=== PATIENT | male | born 1945 | race African-American/Black ===

== ENCOUNTER 2018-08-22 17:44 | Emergency (ER) | payer MEDICARE, MEDICAID ==
[~2018-08-22] VITALS: Ht 190.5 cm; Wt 83.9 kg
[2018-08-22 17:53] VITALS: BP 159/98
[2018-08-22] MEDS ORDERED: Bacitracin Oint UD TOPIC ONE (18:30)
[2018-08-22] MEDS ORDERED: Cephalexin 500mg cap ORAL ONE (18:30)
[2018-08-22] MEDS ORDERED: Tetanus/Diptheria/Pertussis Vaccine 0.5ml Syr IM ONE (18:45)
--- NOTE | 2018-08-22 18:45 | Emergency Room Report ---
History of Present Illness General Chief Complaint: Skin Rash/Abscess Source: Patient Present Illness HPI 72-year-old male presents to the emergency department complaining of c/o Itching, swelling, and erythema of lateral left ankle. Reports 8 out of 10 in severity pain. Patient is unsure when his last tetanus vaccination was. Patient reports that his has similar symptoms as well. Pt. denies fevers, chills or swollen tender lymph nodes. Denies lesions/rashes elsewhere on the body. Denies new medications or body washes or creams. Denies swelling of the lips, tongue , throat or airway. Denies wheezing, or shortness of breath. Denies recent travel. Denies blisters, oral lesions, or sloughing of the skin Allergies: Coded Allergies: ASPIRIN (Verified Allergy, Unknown, 08/22/18) Patient History Past Medical History: see triage record Past Surgical History: none Pertinent Family History: none Reviewed Nursing Documentation: PMH: Agreed; PSxH: Agreed Nursing Documentation-PMH Past Medical History: No History, Except For Hx Hypertension: Yes Review of Systems All Other Systems: negative except mentioned in HPI Physical Exam Vital Signs Date Time Temp Pulse Resp B/P (MAP) Pulse Ox O2 Delivery O2 Flow Rate FiO2 08/22/18 17:53 98.4 93 20 159/98 95 Room Air Sp02 EP Interpretation: reviewed, normal General Appearance: no apparent distress, alert, GCS 15, non-toxic Head: normocephalic, atraumatic Eyes: bilateral eye normal inspection, bilateral eye PERRL ENT: hearing grossly normal, no angioedema, normal voice Neck: full range of motion Respiratory: chest non-tender, lungs clear, normal breath sounds, no wheezing, speaking full sentences Cardiovascular #1: regular rate, rhythm, no edema Musculoskeletal: back normal, gait/station normal, normal range of motion, non- tender Neurologic: alert, oriented x3, responsive, motor strength/tone normal, sensory intact, normal gait, speech normal, grossly normal Psychiatric: judgement/insight normal Skin: normal color, warm/dry, well hydrated, rash - multiple insect bites to the left ankle, excoriations, erythema and warmth, no blisters or vesicles. , other - hairless shiny appearance to skin of bilateral LE's, hyperpigmentation also noted. Medical Decision Making PA Attestation Dr. Ochoa is my supervising Physician whom patient management has been discussed with. Diagnostic Impression: Primary Impression: Insect bite Qualified Codes: W57.XXXA - Bitten or stung by nonvenomous insect and other nonvenomous arthropods, initial encounter ER Course 72-year-old male presents to the emergency department complaining of c/o Itching, swelling, and erythema of lateral left ankle. Reports 8 out of 10 in severity pain. Patient is unsure when his last tetanus vaccination was. Patient reports that his has similar symptoms as well. Pt. denies fevers, chills or swollen tender lymph nodes. Denies lesions/rashes elsewhere on the body. Denies new medications or body washes or creams. Denies swelling of the lips, tongue , throat or airway. Denies wheezing, or shortness of breath. Denies recent travel. Denies blisters, oral lesions, or sloughing of the skin skin signs that are evident of PVD. Ddx considered but are not limited to cellulitis, scabies, insect bites, tic bites, spider bites, contact dermatitis, Drug reaction, allergic reaction, fungal infection, lice. Vital signs: are WNL, pt. is afebrile H&PE are most consistent with multiple insect bites to the left ankle, excoriations, and suspected secondary cellulitic infection. ORDERS: none required at this time, the diagnosis is clinical ED INTERVENTIONS: -Tdap IM -Wound Care- cleaning and bacitracin application by RN. -Keflex PO DISCHARGE: At this time pt. is stable for d/c to home. Will provide printed patient care instructions, and any necessary prescriptions. Care plan and follow up instructions have been discussed with the patient prior to discharge. Last Vital Signs Date Time Temp Pulse Resp B/P (MAP) Pulse Ox O2 Delivery O2 Flow Rate FiO2 08/22/18 17:53 98.4 93 20 159/98 95 Room Air Disposition: HOME, SELF-CARE Condition: Stable Scripts Hydrocortisone 2% Cream (ANTI-ITCH 2% CREAM) Y Cr 1 APPLIC TP TID, #28.3 GM Prov: Madeline Mcclelland 08/22/18 Mupirocin* (MUPIROCIN*) 22 Gm Oint...g. 1 APPLIC TOPIC THREE TIMES A DAY, #22 GM Prov: Madeline Mcclelland 08/22/18 Cephalexin* (KEFLEX*) 500 Mg Capsule 500 MG ORAL EVERY 12 HOURS for 7 Days, #14 CAP 0 Refills Prov: Madeline Mcclelland 08/22/18 Patient Instructions: Insect Bite, Bryg-ey-Izbl Additional Instructions: Take medications as directed. Follow up with a Primary Care Provider in 3-5 days, even if your symptoms have resolved. --Please review list of primary care clinics, if you do not already have a primary care provider Return sooner to ED if new symptoms occur, or current symptoms become worse. - Please note that this Emergency Department Report was dictated using [employer] technologist technology software, occasionally this can lead to erroneous entry secondary to interpretation by the dictation equipment. Madeline Mcclelland Aug 22, 2018 18:45
[2018-08-22] MEDS ORDERED: ANTI-ITCH28 G1 TP (18:53)
[2018-08-22] MEDS ORDERED: CEPHALEXIN500 MG ORAL (18:53)
[2018-08-22] MEDS ORDERED: MUPIROCIN22 GM TOPIC (18:53)
[2018-08-22 18:58] VITALS: BP 148/76
== END 2018-08-22 18:58 | disposition home or self-care (01) ==
LOC: EMR 18:00
DX: S90.562A Insect bite (nonvenomous), left ankle, initial encounter (principal); W57.XXXA Bitten or stung by nonvenomous insect and other nonvenomous arthropods, initial encounter; Y92.9 Unspecified place or not applicable; R21 Rash and other nonspecific skin eruption; L81.9 Disorder of pigmentation, unspecified; Z23 Encounter for immunization; I10 Essential (primary) hypertension
CPT/HCPCS: 90471; 90715; 99283

== ENCOUNTER 2019-02-08 05:29 | Inpatient (IN) | payer MEDICARE, MEDICAID ==
[~2019-02-08] VITALS: Ht 190.5 cm; Wt 81.2 kg
[2019-02-08] VITALS (7 sets, daily range): BP systolic 90–168; BP diastolic 44–89
[~2019-02-08 05:29] MED LIST: ANTI-ITCH28 G1 TP; CEPHALEXIN500 MG ORAL; MUPIROCIN22 GM TOPIC
--- NOTE | 2019-02-08 05:40 | NUR ---
ED Nurse Note: Pt arrived ambulatory, A/Ox4 for facial swelling that began at approximately 6pm last night. Pt verbalized taking lisinopril. Swelling noted around cheeks and lips, minimal swelling of tongue. Pt denies SOB or difficulty breathing.
[2019-02-08] MEDS ORDERED: Solu-MEDROL 125mg Inj IVP ONE (06:00)
[2019-02-08] MEDS ORDERED: DiphenhydrAMINE 50mg/ml Inj IVP ONE (06:00)
[2019-02-08 06:03] LABS: EOSINOPHILS % (AUTO) 4.7 % (0.0-3.0); HEMATOCRIT 37.6 % (42.0-52.0); HEMOGLOBIN 12.6 G/DL (14.2-18.0); LYMPHOCYTES % (AUTO) 15.7 % (20.0-45.0); MEAN CORPUSCULAR VOLUME 84 FL (80-99); MONOCYTES % (AUTO) 6.5 % (1.0-10.0); NEUTROPHILS % (AUTO) 72.1 % (45.0-75.0); PLATELET COUNT 192 K/UL (150-450); RED BLOOD COUNT 4.49 M/UL (4.70-6.10); RED CELL DISTRIBUTION WIDTH 11.4 % (11.6-14.8); WHITE BLOOD COUNT 5.6 K/UL (4.8-10.8)
[2019-02-08 06:24] LABS: ANION GAP 7 mmol/L (5-15); BLOOD UREA NITROGEN 27 mg/dL (7-18); CALCIUM 10.2 MG/DL (8.5-10.1); CARBON DIOXIDE 27 MMOL/L (21-32); CHLORIDE 100 MMOL/L (98-107); CREATININE 2.2 MG/DL (0.55-1.30); SODIUM 134 MMOL/L (136-145)
--- NOTE | 2019-02-08 06:27 | Emergency Room Report ---
History of Present Illness General Chief Complaint: Allergic Reaction Source: Patient Present Illness HPI Is a 73-year-old male with a history of high blood pressure. He presents with chief complaint of allergic reaction. He takes an GREG inhibitor and Norvasc for his high blood pressure. About 12 hours ago, he noticed swelling to his lip after dinner. It progressively getting worse. Started on the left side and now spreading to the right side. Also with some swelling to the left cheek. No tongue swelling. No patellar distress. No neck tightness. No other new medication. No other complaint. Allergies: Coded Allergies: ASPIRIN (Verified Allergy, Unknown, 08/22/18) Patient History Past Medical History: see triage record, old chart reviewed, HTN Past Surgical History: none Pertinent Family History: none Social History: Denies: smoking Immunizations: other Reviewed Nursing Documentation: PMH: Agreed; PSxH: Agreed Nursing Documentation-PMH Hx Hypertension: Yes Hx Gastrointestinal Problems: No - prostate biopsy Review of Systems Eye: Denies: eye pain, blurred vision ENT: Denies: ear pain, nose congestion, throat swelling Respiratory: Denies: cough, shortness of breath Cardiovascular: Denies: chest pain, palpitations Gastrointestinal: Denies: abdominal pain, diarrhea, nausea, vomiting Musculoskeletal: Denies: back pain, joint pain Skin: Denies: rash Neurological: Denies: headache, numbness Endocrine: Denies: increased thirst, increased urine Hematologic/Lymphatic: Denies: easy bruising All Other Systems: negative except mentioned in HPI Physical Exam Vital Signs Date Time Temp Pulse Resp B/P (MAP) Pulse Ox O2 Delivery O2 Flow Rate FiO2 02/08/19 05:30 85 18 Room Air 99 02/08/19 05:30 98.1 161/89 99 vitals with high blood pressure Sp02 EP Interpretation: reviewed, normal General Appearance: well appearing, no apparent distress, alert Head: normocephalic, atraumatic Eyes: bilateral eye PERRL, bilateral eye EOMI ENT: hearing grossly normal, normal pharynx, other - He has edema to his lips and left cheek area. No trismus. No tongue edema. No swelling to the submental area. 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 Fortunately only involving his lips area no respiratory issue. Will admit for monitoring. At this point in time, he is protecting his airway. No evidence of anaphylaxis. I discussed the case with Dr. Hernandes for admission. EKG Diagnostic Results Rate: normal Rhythm: NSR ST Segments: no acute changes Rhythm Strip Diag. Results EP Interpretation: yes Rate: 94 Rhythm: NSR, no PVC's, no ectopy Last Vital Signs Date Time Temp Pulse Resp B/P (MAP) Pulse Ox O2 Delivery O2 Flow Rate FiO2 02/08/19 05:39 97.0 84 15 161/89 100 Room Air 02/08/19 05:30 99 Status: improved Disposition: ADMITTED INPATIENT Condition: Serious Referrals: NOT CHOSEN IPA/,REFERRING (PCP) Alfredo Boggs MD Feb 08, 2019 06:27
[2019-02-08] MEDS ORDERED: LISINOPRIL20 MG ORAL (06:44)
[2019-02-08] MEDS ORDERED: NORVASC10 MG ORAL (06:44)
[2019-02-08] MEDS ORDERED: NORCO 10-325 T1 EACH ORAL (06:44)
--- NOTE | 2019-02-08 06:44 | NUR ---
ED Nurse Note: and pt attempted to provide verbal list of medications being taken. Pt states he is also taking other medications but unaware of the names.
[2019-02-08] MEDS ORDERED: HYDROcodone/Acetamin 5/325 tab ORAL ONE (06:45)
--- NOTE | 2019-02-08 06:58 | NUR ---
ED Nurse Note: Pt continues to thrash and moan in pain. Pt states pain is located on left side of prostate 10/10, sharp. Comfort measures provided. Will continue to monitor.
--- NOTE | 2019-02-08 07:06 | NUR ---
ED Nurse Note: BP decreased, per MD 500 ml bolus to be given.
--- NOTE | 2019-02-08 08:00 | NUR ---
ED Nurse Note:pt.'s BP went to 126/66 he still c/o prostate pain, ER MD authorized to transfer Pt. to tele at this time without additional dose of pain meds.
--- NOTE | 2019-02-08 08:10 | NUR ---
ED Nurse Note:called report to tele -given to RN Min, pt. was taken up stairs
--- NOTE | 2019-02-08 08:10 | NUR ---
NURSE NOTES: Received report from Ladi RN form ED. Pt transferred from ED via [facility] with nuclear medicine technician and RN. AO X4 and able to verbalize. Pt ambulates steady and uses urinal. All adm order verified with Dr. Hernandes. IV LAC 20G SL intact and patent. Skin intact and dry. Noted swelling to lip and face but pt no c/o sore throat and no difficulty in breathe. Will SCD for DVT ppx when it's available.
[2019-02-08] MEDS ORDERED: Zolpidem 5mg tab ORAL PRN (09:00)
[2019-02-08] MEDS ORDERED: Mylanta II UD 30ml ORAL PRN (09:00)
[2019-02-08] MEDS ORDERED: Morphine Sulfate 2mg/ml Inj(IV/IM USE ONLY) IVP PRN ×2 (09:00→16:30)
[2019-02-08] MEDS ORDERED: LORazepam Inj 2mg/ml 1ml IV PRN (09:00)
[2019-02-08] MEDS ORDERED: Miralax 17gm pkt ORAL PRN (09:00)
--- NOTE | 2019-02-08 10:21 | Consultation ---
History of Present Illness General Date patient seen: Feb 08, 2019 Chief Complaint: Allergic Reaction Present Illness HPI 73-year-old male with a history of high blood pressure presented to ER with chief complaint of allergic reaction about 12 hours ago, he noticed swelling to his lip after dinner. It progressively getting worse. Also with some swelling to the left cheek. No tongue swelling. No patellar distress. No neck tightness. No other new medication. This started after taking MARA inhibitors. Pt is admitted to telemetry for further management. Allergies: Coded Allergies: ASPIRIN (Verified Allergy, Unknown, 08/22/18) Medication History Scheduled Amlodipine Besylate (Norvasc), 10 MG ORAL DAILY, (Reported) Cephalexin* (Keflex*), 500 MG ORAL EVERY 12 HOURS Hydrocortisone 2% Cream (Anti-Itch 2% Cream), 1 APPLIC TP TID Lisinopril (Lisinopril*), 20 MG ORAL DAILY, (Reported) Mupirocin* (Mupirocin*), 1 APPLIC TOPIC THREE TIMES A DAY Scheduled PRN Hydrocodone Bit/Acetaminophen 10-325* ([place] 10-325*), 1 TAB ORAL Q4H PRN for For Pain, (Reported) Patient History Healthcare decision maker Resuscitation status Advanced Directive on File Past Medical/Surgical History Past Medical/Surgical History: (1) Hypertension Review of Systems All Other Systems: negative except mentioned in HPI Physical Exam General Appearance: WD/WN Lines, tubes and drains: peripheral HEENT: normocephalic, atraumatic Neck: non-tender, normal alignment Respiratory/Chest: chest wall non-tender, lungs clear, normal breath sounds Breasts: no masses Cardiovascular/Chest: normal peripheral pulses Abdomen: normal bowel sounds Genitourinary/Rectal: normal genital exam Extremities: normal range of motion Skin Exam: normal pigmentation Last 24 Hour Vital Signs Date Time Temp Pulse Resp B/P (MAP) Pulse Ox O2 Delivery O2 Flow Rate FiO2 02/08/19 08:01 98.4 85 18 126/66 100 Room Air 99 02/08/19 07:55 98.4 85 18 126/66 100 Room Air 99 02/08/19 07:00 98.4 75 24 90/44 100 Room Air 99 02/08/19 06:59 98.1 02/08/19 06:26 161/89 02/08/19 06:26 93 161/89 02/08/19 05:39 97.0 84 15 100 Room Air 02/08/19 05:30 98.1 81 22 99 Room Air 02/08/19 05:30 85 18 Room Air 99 Laboratory Tests Test 02/08/19 05:51 White Blood Count 5.6 K/UL (4.8-10.8) Red Blood Count 4.49 M/UL (4.70-6.10) L Hemoglobin 12.6 G/DL (14.2-18.0) L Hematocrit 37.6 % (42.0-52.0) L Mean Corpuscular Volume 84 FL (80-99) Mean Corpuscular Hemoglobin 28.0 PG (27.0-31.0) Mean Corpuscular Hemoglobin Concent 33.5 G/DL (32.0-36.0) Red Cell Distribution Width 11.4 % (11.6-14.8) L Platelet Count 192 K/UL (150-450) Mean Platelet Volume 7.3 FL (6.5-10.1) Neutrophils (%) (Auto) 72.1 % (45.0-75.0) Lymphocytes (%) (Auto) 15.7 % (20.0-45.0) L Monocytes (%) (Auto) 6.5 % (1.0-10.0) Eosinophils (%) (Auto) 4.7 % (0.0-3.0) H Basophils (%) (Auto) 1.0 % (0.0-2.0) Sodium Level 134 MMOL/L (136-145) L Potassium Level 5.0 MMOL/L (3.5-5.1) Chloride Level 100 MMOL/L (98-107) Carbon Dioxide Level 27 MMOL/L (21-32) Anion Gap 7 mmol/L (5-15) Blood Urea Nitrogen 27 mg/dL (7-18) H Creatinine 2.2 MG/DL (0.55-1.30) H Estimat Glomerular Filtration Rate mL/min (>60) Glucose Level 110 MG/DL (74-106) H Calcium Level 10.2 MG/DL (8.5-10.1) H Height (Feet): 6 Height (Inches): 3.00 Weight (Pounds): 180 Medications Current Medications Medications (Trade) Dose Ordered Sig/Winnie Route PRN Reason Start Time Stop Time Status Last Admin Dose Admin Acetaminophen (Tylenol) 650 mg Q4H PRN ORAL fever 02/08/19 09:00 03/10/19 08:59 Al Hydroxide/Mg Hydroxide (Mylanta II) 30 ml Q6H PRN ORAL dyspepsia 02/08/19 09:00 03/10/19 08:59 Dextrose (Dextrose 50%) STAT PRN IV Hypoglycemia 02/08/19 09:00 03/10/19 08:59 Lorazepam (Ativan 2mg/ml 1ml) 0.5 mg Q4H PRN IV For Anxiety 02/08/19 09:00 02/15/19 08:59 Morphine Sulfate (Morphine Sulfate) 1 mg EVERY 4 HOURS PRN IVP For Pain 02/08/19 09:00 02/15/19 08:59 02/08/19 09:57 Ondansetron HCl (Zofran) 4 mg Q6H PRN IVP Nausea & Vomiting 02/08/19 09:00 03/10/19 08:59 Polyethylene Glycol (Miralax) 17 gm HSPRN PRN ORAL Constipation 02/08/19 09:00 03/10/19 08:59 Zolpidem Tartrate (Ambien) 5 mg HSPRN PRN ORAL Insomnia 02/08/19 09:00 02/15/19 08:59 Assessment/Plan Problem List: (1) Hypertension ICD Codes: I10 - Essential (primary) hypertension SNOMED: 45728831 Qualifiers: Qualified Codes: I10 - Essential (primary) hypertension (2) Angioedema due to angiotensin converting enzyme inhibitor(MARA-I) ICD Codes: T78.3XXA - Angioneurotic edema, initial encounter; T46.4X5A - Adverse effect of antizlwyxjo-rdwjqubduv-nyoclg inhibitors, initial encounter SNOMED: 362806548 Diagnosis [place] I: symptomatic treatment check bp avoid MARA inhibitors Paula Cho MD Feb 08, 2019 10:21
--- NOTE | 2019-02-08 14:32 | NUR ---
CASE MANAGEMENT: REVIEW 73Y/M PRESENTED TO ED FROM HOME CC: ALLERGIC REACTION FROM AMRA INHIBITOR . NECK TIGHTNESS SI: ANGIOEDEMA T 97.0 HR 84 RR 15 BP 161/89 SAT 99% ROOM AIR H/H 12.6/37.6 NA 134 BUN 27 CR 2.2 IS: SOLU MEDROL IV X1 BENADRYL IV X1 HYDRALAZINE IV X1 NORVASC PO X1 NORCO 5/325 PO X1 PATIENT ADMITTED TO TELEMETRY UNIT 02/08/2019 DCP: PATENT IS FROM HOME
--- NOTE | 2019-02-08 15:05 | Consultation ---
Consult Note Consult Note asked to eval for renal failure Is a 73-year-old male with a history of high blood pressure. He presents with chief complaint of allergic reaction. He takes an GREG inhibitor and Norvasc for his high blood pressure. About 12 hours ago, he noticed swelling to his lip after dinner. It progressively getting worse. Started on the left side and now spreading to the right side. Also with some swelling to the left cheek. No tongue swelling. No patellar distress. No neck tightness. No other new medication. No other complaint. Allergies: ASPIRIN (Verified Allergy, Unknown, 08/22/18) Hx Hypertension: Yes Hx Gastrointestinal Problems: No - prostate biopsy interviewed examined data reviewed has swollen lips no breathing difficulty . Assessment/Plan Acute on Chronic renal failure- Hypertensive kidney disease Acute allergic reaction to Greg Inhibitors H2 Blockers H1 Mehdi Hydrate BP meds monitor renal parameters CXR Kidney GREYSON urine studies Per orders Philip James MD Feb 08, 2019 15:05
[2019-02-08] MEDS ORDERED: Solu-MEDROL 125mg Inj IVP SCH (15:15)
[2019-02-08] MEDS ORDERED: Dextrose 50% 25ml Syringe IV PRN (15:15)
[2019-02-08] MEDS: D5 1/2NS 1,000 ML IV SCH (15:38)
[2019-02-08] MEDS: HYDROcodone/Acetamin 10/325 tab ORAL PRN (16:52)
--- NOTE | 2019-02-08 17:53 | NUR ---
NURSE NOTES: RN was called from Radiology dept for US kidney. Per associate technician, there tech's gone for the day and test will be available tomorrow AM. Dr. James who ordered for US kidney notified about it. And order for US kidney rescheduled to tomorrow(Sunday) AM.
[2019-02-08 17:58] LABS: APPEARANCE,URINE CLEAR; BILIRUBIN, URINE NEGATIVE (NEGATIVE); COLOR,URINE PALE YELLOW; GLUCOSE, URINE (UA) NEGATIVE (NEGATIVE); KETONES,URINE NEGATIVE (NEGATIVE); LEUKOCYTE ESTERASE ,URINE NEGATIVE (NEGATIVE); NITRITE,URINE NEGATIVE (NEGATIVE); PH,URINE 6 (4.5-8.0); PROTEIN,URINE 1+ (NEGATIVE); UROBILINOGEN,URINE NORMAL MG/DL (0.0-1.0)
--- NOTE | 2019-02-08 19:39 | NUR ---
HAND-OFF: Report given to Anthony SHEA. Pt remains stable.
--- NOTE | 2019-02-08 19:40 | NUR ---
NURSE NOTES: Got report from Min RN. Pt in stable condition. Continue to monitor.
--- NOTE | 2019-02-08 21:00 | History and Physical Report ---
DATE OF ADMISSION: 02/08/2019 TIME: At 9 am. ATTENDING PHYSICIAN: Tang Hernandes D.O. CONSULTANTS: 1. Puala Cho M.D. 2. Philip James M.D. CHIEF COMPLAINT: Angioedema and allergic reaction. BRIEF HISTORY: The patient is a 73-year-old male who lives at home with history of hypertension, recently his doctor changed Norvasc to MARA inhibitor. The patient developed swelling in the lips and came to [place], diagnosed with the above, admitted to the telemetry for further care. Currently, calm, in bed. No complaint. REVIEW OF SYSTEMS: No chest pain. No shortness of breath. No nausea, vomiting, or diarrhea. No respiratory problem. PAST MEDICAL HISTORY: Hypertension. PAST SURGICAL HISTORY: Abdominal surgery. ALLERGIES: Aspirin and now MARA inhibitor. MEDICATIONS: Include Tylenol, morphine, Zofran, zolpidem, lorazepam. SOCIAL HISTORY: No smoking. No alcohol. No intravenous drug abuse. FAMILY HISTORY: Noncontributory. PHYSICAL EXAMINATION: GENERAL: Calm in bed, oriented x3, in no acute distress. VITAL SIGNS: Temperature is 98 degrees, pulse 85, respirations 18, and blood pressure 126/66. CARDIOVASCULAR: No murmur. LUNGS: Distant and clear. ABDOMEN: Bowel sound positive. Nontender. Nondistended. EXTREMITIES: Showed no cyanosis or edema. NEUROLOGIC: The patient moves all extremities, slightly weak. Noted upper and lower lip swelling and no airway compromise. LABORATORY DATA: Labs at this time show hemoglobin and hematocrit 12.6/37, otherwise CBC is normal. BMP shows sodium of 134, BUN and creatinine 27 and 2.2, glucose 110. ASSESSMENT: 1. Angioedema. 2. Hypertension. 3. Anemia. 4. Renal insufficiency. PLAN: 1. Observe anti-allergy med p.r.n. 2. NPO. 3. IV fluids. 4. We will monitor. 5. We will continue to follow the patient. 6. CBC and BMP in the morning. Tang Hernandes D.O. DR: GABRIELLA JOB#: [id number] CC:
[2019-02-08] MEDS: Tamsulosin 0.4mg cap ORAL SCH (21:17)
[2019-02-09 00:50] VITALS: BP 107/51
[2019-02-09 04:09] VITALS: BP 150/90
[2019-02-09] MEDS: D5 1/2NS 1,000 ML IV SCH (04:24)
[2019-02-09 07:13] LABS: BASOPHILS % (AUTO) 0.6 % (0.0-2.0); EOSINOPHILS % (AUTO) 0.1 % (0.0-3.0); HEMATOCRIT 34.1 % (42.0-52.0); HEMOGLOBIN 11.3 G/DL (14.2-18.0); LYMPHOCYTES % (AUTO) 10.2 % (20.0-45.0); MEAN CORPUSCULAR VOLUME 83 FL (80-99); MONOCYTES % (AUTO) 8.4 % (1.0-10.0); NEUTROPHILS % (AUTO) 80.7 % (45.0-75.0); PLATELET COUNT 183 K/UL (150-450); RED BLOOD COUNT 4.09 M/UL (4.70-6.10); RED CELL DISTRIBUTION WIDTH 11.3 % (11.6-14.8); WHITE BLOOD COUNT 7.5 K/UL (4.8-10.8)
--- NOTE | 2019-02-09 07:25 | NUR ---
HAND-OFF: Report given to Anoop Meza. Endorsed plan of care.
[2019-02-09 07:36] LABS: ALANINE AMINOTRANSFERASE 27 U/L (12-78); ALBUMIN 3.2 G/DL (3.4-5.0); ALBUMIN/GLOBULIN RATIO 0.8 (1.0-2.7); ALKALINE PHOSPHATASE 348 U/L (46-116); ANION GAP 9 mmol/L (5-15); ASPARTATE AMINO TRANSFERASE 109 U/L (15-37); BILIRUBIN,TOTAL 0.2 MG/DL (0.2-1.0); BLOOD UREA NITROGEN 32 mg/dL (7-18); CALCIUM 9.5 MG/DL (8.5-10.1); CARBON DIOXIDE 24 MMOL/L (21-32); CHLORIDE 102 MMOL/L (98-107); CHOLESTEROL 148 MG/DL (< 200); CREATININE 1.9 MG/DL (0.55-1.30); HDL CHOLESTEROL 61 MG/DL (40-60); POTASSIUM 5.2 MMOL/L (3.5-5.1); SODIUM 135 MMOL/L (136-145); TRIGLYCERIDES 53 MG/DL (30-150)
[2019-02-09 08:00] VITALS: BP 145/80
[2019-02-09 08:08] LABS: CREATINE KINASE 320 U/L (26-308); GAMMA GLUTAMYL TRANSPEPTIDASE 89 U/L (5-85); PHOSPHORUS 3.6 MG/DL (2.5-4.9)
[2019-02-09] MEDS: HYDROcodone/Acetamin 10/325 tab ORAL PRN ×3 (09:24→23:58)
--- NOTE | 2019-02-09 09:34 | General Progress Note ---
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) ICD Codes: T78.3XXA - Angioneurotic edema, initial encounter; T46.4X5A - Adverse effect of heqpipdgueq-argrdrkhle-ihwekg inhibitors, initial encounter SNOMED: 337111638 Status: stable, progressing Assessment/Plan: diet monitor cbc bmp am dc plan w hh Subjective Constitutional: Reports: weakness Allergies: Coded Allergies: ASPIRIN (Verified Allergy, Unknown, 08/22/18) All Systems: reviewed and negative except above Subjective sl lip swelling Objective Last 24 Hour Vital Signs Date Time Temp Pulse Resp B/P (MAP) Pulse Ox O2 Delivery O2 Flow Rate FiO2 02/09/19 09:01 Room Air 02/09/19 08:17 80 145/80 02/09/19 08:00 98.0 80 20 145/80 (101) 98 02/09/19 07:54 90 02/09/19 04:20 71 02/09/19 04:09 98.0 73 20 150/90 (110) 98 02/09/19 00:50 97.9 63 19 107/51 (69) 96 02/09/19 00:48 Room Air 02/09/19 00:00 72 02/08/19 20:00 99.0 80 20 142/67 (92) 97 02/08/19 20:00 94 02/08/19 18:57 168/84 02/08/19 16:00 98.5 100 19 168/84 (112) 96 02/08/19 16:00 76 02/08/19 12:26 Room Air 02/08/19 12:00 78 02/08/19 12:00 98.4 90 18 133/69 (90) 98 Intake and Output 02/08/19 02/09/19 19:00 07:00 Intake Total 991 ml Balance 991 ml Intake Oral 736 ml IV Total 255 ml # Voids 2 3 Laboratory Tests 02/08/19 17:00: Urine Color Pale yellow, Urine Appearance Clear, Urine pH 6, Urine Specific [place] 1.010, Urine Protein 1+H, Urine Glucose (UA) Negative, Urine Ketones Negative, Urine Blood Negative, Urine Nitrite Negative, Urine Bilirubin Negative , Urine Urobilinogen Normal, Urine Leukocyte Esterase Negative, Urine RBC 0-2H, Urine WBC 0, Urine Squamous Epithelial Cells None, Urine Bacteria Occasional, Urine Random Sodium 120H 02/09/19 06:37: White Blood Count 7.5, Red Blood Count 4.09L, Hemoglobin 11.3L, Hematocrit 34.1L , Mean Corpuscular Volume 83, Mean Corpuscular Hemoglobin 27.7, Mean Corpuscular Hemoglobin Concent 33.2, Red Cell Distribution Width 11.3L, Platelet Count 183, Mean Platelet Volume 6.9, Neutrophils (%) (Auto) 80.7H, Lymphocytes (%) (Auto) 10.2L, Monocytes (%) (Auto) 8.4, Eosinophils (%) (Auto) 0.1, Basophils (%) (Auto) 0.6, Sodium Level 135L, Potassium Level 5.2H, Chloride Level 102, Carbon Dioxide Level 24, Anion Gap 9, Blood Urea Nitrogen 32H, Creatinine 1.9H, Estimat Glomerular Filtration Rate , Glucose Level 113H, Uric Acid 7.3H, Calcium Level 9.5, Phosphorus Level 3.6, Magnesium Level 2.2, Total Bilirubin 0.2, Gamma Glutamyl Transpeptidase 89H, Aspartate Amino Transf ( AST/SGOT) 109H, Alanine Aminotransferase (ALT/SGPT) 27, Alkaline Phosphatase 348H, Total Creatine Kinase 320H, C-Reactive Protein, Quantitative 1.3H, Pro-B- Type Natriuretic Peptide 361H, Total Protein 7.3, Albumin 3.2L, Globulin 4.1, Albumin/Globulin Ratio 0.8L, Triglycerides Level 53, Cholesterol Level 148, LDL Cholesterol 72, HDL Cholesterol 61H, Cholesterol/HDL Ratio 2.4L, Thyroid Stimulating Hormone (TSH) 0.253L Height (Feet): 6 Height (Inches): 3.00 Weight (Pounds): 179 General Appearance: lethargic EENT: normal ENT inspection Neck: normal alignment Cardiovascular: normal peripheral pulses, normal rate, regular rhythm Respiratory/Chest: chest wall non-tender, lungs clear, normal breath sounds Abdomen: normal bowel sounds, non tender, soft Extremities: normal inspection Edema: no edema noted Arm (L), no edema noted Arm (R), no edema noted Leg (L), no edema noted Leg (R), no edema noted Pedal (L), no edema noted Pedal (R), no edema noted Generalized Neurologic: responsive, motor weakness Skin: normal pigmentation, warm/dry Objective sl lip swelling Tang Hernandes DO Feb 09, 2019 09:34
--- NOTE | 2019-02-09 10:12 | Diagnostic Imaging Report ---
EXAM: XR Chest, 1 View CLINICAL HISTORY: COUGH TECHNIQUE: Frontal view of the chest. COMPARISON: No relevant prior studies available. FINDINGS: Lungs: Mildly increased interstitial markings. The lungs are otherwise clear without focal consolidation. Pleural space: Mild blunting of the right costophrenic angle suggesting a small right pleural effusion. Heart: Unremarkable. No cardiomegaly. Mediastinum: Unremarkable. Bones/joints: Unremarkable. Vasculature: Atherosclerotic calcifications are noted within the aortic arch. Tubes, lines and devices: EKG leads overlie the thorax. IMPRESSION: 1. Small right pleural effusion. 2. Mildly increased interstitial markings. This is nonspecific but may suggest mild pulmonary vascular congestion or a mild interstitial pneumonitis. No focal consolidation.
[2019-02-09 12:00] VITALS: BP 133/84
--- NOTE | 2019-02-09 14:17 | Nephrology Progress Note ---
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) (2) Hypertension (3) Renal failure (ARF), acute on chronic (4) Anemia Assessment Acute on Chronic renal failure- Hypertensive kidney disease Acute allergic reaction to Greg Inhibitors DM Plan H2 Blockers tapering prednison benadryl PRN Hydrate BP meds monitor renal parameters CXR Kidney GREYSON Pending 2D Echo pending urine studies Per orders Subjective ROS Limited/Unobtainable: No Constitutional: Reports: malaise Objective Objective Last 24 Hour Vital Signs Date Time Temp Pulse Resp B/P (MAP) Pulse Ox O2 Delivery O2 Flow Rate FiO2 02/09/19 12:00 98.0 80 20 133/84 (100) 98 02/09/19 11:35 77 02/09/19 09:54 98.0 02/09/19 09:01 Room Air 02/09/19 08:17 80 145/80 02/09/19 08:00 98.0 80 20 145/80 (101) 98 02/09/19 07:54 90 02/09/19 04:20 71 02/09/19 04:09 98.0 73 20 150/90 (110) 98 02/09/19 00:50 97.9 63 19 107/51 (69) 96 02/09/19 00:48 Room Air 02/09/19 00:00 72 02/08/19 20:00 99.0 80 20 142/67 (92) 97 02/08/19 20:00 94 02/08/19 18:57 168/84 02/08/19 16:00 98.5 100 19 168/84 (112) 96 02/08/19 16:00 76 Intake and Output 02/08/19 02/09/19 19:00 07:00 Intake Total 991 ml Balance 991 ml Intake Oral 736 ml IV Total 255 ml # Voids 2 3 Laboratory Tests 02/08/19 17:00: Urine Color Pale yellow, Urine Appearance Clear, Urine pH 6, Urine Specific [place] 1.010, Urine Protein 1+H, Urine Glucose (UA) Negative, Urine Ketones Negative, Urine Blood Negative, Urine Nitrite Negative, Urine Bilirubin Negative , Urine Urobilinogen Normal, Urine Leukocyte Esterase Negative, Urine RBC 0-2H, Urine WBC 0, Urine Squamous Epithelial Cells None, Urine Bacteria Occasional, Urine Random Sodium 120H 02/09/19 06:37: White Blood Count 7.5, Red Blood Count 4.09L, Hemoglobin 11.3L, Hematocrit 34.1L , Mean Corpuscular Volume 83, Mean Corpuscular Hemoglobin 27.7, Mean Corpuscular Hemoglobin Concent 33.2, Red Cell Distribution Width 11.3L, Platelet Count 183, Mean Platelet Volume 6.9, Neutrophils (%) (Auto) 80.7H, Lymphocytes (%) (Auto) 10.2L, Monocytes (%) (Auto) 8.4, Eosinophils (%) (Auto) 0.1, Basophils (%) (Auto) 0.6, Sodium Level 135L, Potassium Level 5.2H, Chloride Level 102, Carbon Dioxide Level 24, Anion Gap 9, Blood Urea Nitrogen 32H, Creatinine 1.9H, Estimat Glomerular Filtration Rate , Glucose Level 113H, Hemoglobin A1c 6.8H, Uric Acid 7.3H, Calcium Level 9.5, Phosphorus Level 3.6, Magnesium Level 2.2, Total Bilirubin 0.2, Gamma Glutamyl Transpeptidase 89H, Aspartate Amino Transf (AST/SGOT) 109H, Alanine Aminotransferase (ALT/SGPT) 27, Alkaline Phosphatase 348H, Total Creatine Kinase 320H, C-Reactive Protein, Quantitative 1.3H, Pro-B-Type Natriuretic Peptide 361H, Total Protein 7.3, Albumin 3.2L, Globulin 4.1, Albumin/Globulin Ratio 0.8L, Triglycerides Level 53 , Cholesterol Level 148, LDL Cholesterol 72, HDL Cholesterol 61H, Cholesterol/ HDL Ratio 2.4L, Thyroid Stimulating Hormone (TSH) 0.253L 02/09/19 09:45: Urine Eosinophils None seen Height (Feet): 6 Height (Inches): 3.00 Weight (Pounds): 179 EENT: other - less swelling around lips Cardiovascular: normal rate Respiratory/Chest: lungs clear Abdomen: soft Objective no change Philip James MD Feb 09, 2019 14:17
--- NOTE | 2019-02-09 14:21 | NUR ---
NURSE NOTES: Dr James aware of k level, no new order
--- NOTE | 2019-02-09 14:33 | Pulmonology Progress Note ---
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) Assessment/Plan improving watch BP no new complains all reviewed dc for am Subjective ROS Limited/Unobtainable: No Constitutional: Reports: no symptoms HEENT: Repors: no symptoms Allergies: Coded Allergies: ASPIRIN (Verified Allergy, Unknown, 08/22/18) Objective Last 24 Hour Vital Signs Date Time Temp Pulse Resp B/P (MAP) Pulse Ox O2 Delivery O2 Flow Rate FiO2 02/09/19 12:00 98.0 80 20 133/84 (100) 98 02/09/19 11:35 77 02/09/19 09:54 98.0 02/09/19 09:01 Room Air 02/09/19 08:17 80 145/80 02/09/19 08:00 98.0 80 20 145/80 (101) 98 02/09/19 07:54 90 02/09/19 04:20 71 02/09/19 04:09 98.0 73 20 150/90 (110) 98 02/09/19 00:50 97.9 63 19 107/51 (69) 96 02/09/19 00:48 Room Air 02/09/19 00:00 72 02/08/19 20:00 99.0 80 20 142/67 (92) 97 02/08/19 20:00 94 02/08/19 18:57 168/84 02/08/19 16:00 98.5 100 19 168/84 (112) 96 02/08/19 16:00 76 Intake and Output 02/08/19 02/09/19 19:00 07:00 Intake Total 991 ml Balance 991 ml Intake Oral 736 ml IV Total 255 ml # Voids 2 3 Objective General Appearance: WD/WN HEENT: normocephalic, atraumatic Cardiovascular: normal peripheral pulses, normal rate Abdomen: normal bowel sounds, soft, non tender Genitourinary: normal external genitalia Extremities: no clubbing Skin: no rash 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 Musculoskeletal: normal muscle bulk Laboratory Tests 02/08/19 17:00: Urine Color Pale yellow, Urine Appearance Clear, Urine pH 6, Urine Specific [place] 1.010, Urine Protein 1+H, Urine Glucose (UA) Negative, Urine Ketones Negative, Urine Blood Negative, Urine Nitrite Negative, Urine Bilirubin Negative , Urine Urobilinogen Normal, Urine Leukocyte Esterase Negative, Urine RBC 0-2H, Urine WBC 0, Urine Squamous Epithelial Cells None, Urine Bacteria Occasional, Urine Random Sodium 120H 02/09/19 06:37: White Blood Count 7.5, Red Blood Count 4.09L, Hemoglobin 11.3L, Hematocrit 34.1L , Mean Corpuscular Volume 83, Mean Corpuscular Hemoglobin 27.7, Mean Corpuscular Hemoglobin Concent 33.2, Red Cell Distribution Width 11.3L, Platelet Count 183, Mean Platelet Volume 6.9, Neutrophils (%) (Auto) 80.7H, Lymphocytes (%) (Auto) 10.2L, Monocytes (%) (Auto) 8.4, Eosinophils (%) (Auto) 0.1, Basophils (%) (Auto) 0.6, Sodium Level 135L, Potassium Level 5.2H, Chloride Level 102, Carbon Dioxide Level 24, Anion Gap 9, Blood Urea Nitrogen 32H, Creatinine 1.9H, Estimat Glomerular Filtration Rate , Glucose Level 113H, Hemoglobin A1c 6.8H, Uric Acid 7.3H, Calcium Level 9.5, Phosphorus Level 3.6, Magnesium Level 2.2, Total Bilirubin 0.2, Gamma Glutamyl Transpeptidase 89H, Aspartate Amino Transf (AST/SGOT) 109H, Alanine Aminotransferase (ALT/SGPT) 27, Alkaline Phosphatase 348H, Total Creatine Kinase 320H, C-Reactive Protein, Quantitative 1.3H, Pro-B-Type Natriuretic Peptide 361H, Total Protein 7.3, Albumin 3.2L, Globulin 4.1, Albumin/Globulin Ratio 0.8L, Triglycerides Level 53 , Cholesterol Level 148, LDL Cholesterol 72, HDL Cholesterol 61H, Cholesterol/ HDL Ratio 2.4L, Thyroid Stimulating Hormone (TSH) 0.253L 02/09/19 09:45: Urine Eosinophils None seen Current Medications Medications (Trade) Dose Ordered Sig/Winnie Route PRN Reason Start Time Stop Time Status Last Admin Dose Admin Acetaminophen (Tylenol) 650 mg Q4H PRN ORAL fever 02/08/19 09:00 03/10/19 08:59 Acetaminophen/ Hydrocodone Bitart ([place] 10/325) 1 tab Q4H PRN ORAL PAIN 4-10 02/08/19 16:30 02/15/19 16:29 02/09/19 09:24 Amlodipine Besylate (Norvasc) 10 mg DAILY ORAL 02/09/19 09:00 03/11/19 08:59 02/09/19 08:17 Dextrose (Dextrose 50%) 25 ml Q30M PRN IV Hypoglycemia 02/08/19 15:15 03/10/19 15:12 Dextrose (Dextrose 50%) 50 ml Q30M PRN IV hypoglycemia 02/08/19 15:15 03/10/19 15:14 Diphenhydramine HCl (Benadryl) 25 mg Q6H PRN ORAL Itching 02/08/19 15:15 03/10/19 15:14 Docusate Sodium (Colace) 100 mg THREE TIMES A DAY ORAL 02/09/19 18:00 03/11/19 17:59 Famotidine (Pepcid) 20 mg BID ORAL 02/08/19 18:00 03/10/19 17:59 02/09/19 08:17 Hydralazine HCl (Apresoline) 10 mg Q4H PRN IV sbp> 160 02/08/19 10:30 03/10/19 10:29 02/08/19 18:57 Lorazepam (Ativan 2mg/ml 1ml) 0.5 mg Q4H PRN IV For Anxiety 02/08/19 09:00 02/15/19 08:59 Morphine Sulfate (Morphine Sulfate) 1 mg EVERY 4 HOURS PRN IVP SEVERE BREAKTHROUGH PAIN 02/08/19 16:30 02/15/19 08:59 Ondansetron HCl (Zofran) 4 mg Q6H PRN IVP Nausea & Vomiting 02/08/19 09:00 03/10/19 08:59 Polyethylene Glycol (Miralax) 17 gm HSPRN PRN ORAL Constipation 02/08/19 09:00 03/10/19 08:59 Prednisone (predniSONE) 20 mg TID ORAL 02/09/19 18:00 02/11/19 13:01 Prednisone (predniSONE) 40 mg ONCE ORAL 02/09/19 14:15 02/09/19 15:30 Sodium Chloride 1,000 ml @ 50 mls/hr Q20H IV 02/10/19 14:30 03/11/19 14:29 Tamsulosin HCl (Flomax) 0.4 mg BEDTIME ORAL 4/27/19 21:00 03/10/19 20:59 02/08/19 21:17 Zolpidem Tartrate (Ambien) 5 mg HSPRN PRN ORAL Insomnia 02/08/19 09:00 02/15/19 08:59 Paula Cho MD Feb 09, 2019 14:33
[2019-02-09 16:00] VITALS: BP 144/74
[2019-02-09] MEDS ORDERED: Docusate 100mg cap ORAL SCH (18:00)
--- NOTE | 2019-02-09 18:51 | NUR ---
NURSE NOTES: pt aware of medsurg order, pt asymptomatic, call light within reach.
--- NOTE | 2019-02-09 19:14 | NUR ---
HAND-OFF: Report given to RICKIE SHEA.
--- NOTE | 2019-02-09 19:15 | NUR ---
NURSE NOTES: Got report from Anoop SHEA. Pt in stable condition. Continue to monitor.
[2019-02-09 20:00] VITALS: BP 140/79
[2019-02-09] MEDS: Tamsulosin 0.4mg cap ORAL SCH (20:30)
--- NOTE | 2019-02-09 22:56 | NUR ---
HAND-OFF: Report given to Carlos SHEA. Endorsed plan of care.
--- NOTE | 2019-02-09 22:57 | NUR ---
NURSE NOTES: Received patient from 2E from [facility]. Patient AOx4, in good spirits, able to verbalize needs, no s/s of acute distress. Reoriented to room, belongings checked and list signed. Cellphone remained with patient. Fall and safety precautions taken. Bathroom privileges noted. Patient gait steady.
[2019-02-10] VITALS: BP 158/80
[2019-02-10] MEDS ORDERED: HYDROcodone/Acetamin 10/325 tab ORAL PRN (00:30)
[2019-02-10] MEDS ORDERED: Morphine Sulfate 2mg/ml Inj(IV/IM USE ONLY) IVP PRN ×2 (01:00)
[2019-02-10] MEDS ORDERED: LORazepam Inj 2mg/ml 1ml IV PRN ×2 (01:00)
[2019-02-10 04:00] VITALS: BP 138/84
[2019-02-10] MEDS: HYDROcodone/Acetamin 10/325 tab ORAL PRN ×2 (04:08→09:15)
[2019-02-10 06:13] LABS: BASOPHILS % (AUTO) 0.4 % (0.0-2.0); EOSINOPHILS % (AUTO) 0.1 % (0.0-3.0); HEMATOCRIT 30.2 % (42.0-52.0); LYMPHOCYTES % (AUTO) 8.6 % (20.0-45.0); MEAN CORPUSCULAR VOLUME 85 FL (80-99); MONOCYTES % (AUTO) 7.6 % (1.0-10.0); NEUTROPHILS % (AUTO) 83.3 % (45.0-75.0); PLATELET COUNT 166 K/UL (150-450); RED BLOOD COUNT 3.58 M/UL (4.70-6.10); RED CELL DISTRIBUTION WIDTH 11.6 % (11.6-14.8); WHITE BLOOD COUNT 6.9 K/UL (4.8-10.8)
[2019-02-10 06:51] LABS: ALBUMIN 2.8 G/DL (3.4-5.0); ALBUMIN/GLOBULIN RATIO 0.8 (1.0-2.7); ALKALINE PHOSPHATASE 309 U/L (46-116); ANION GAP 8 mmol/L (5-15); ASPARTATE AMINO TRANSFERASE 52 U/L (15-37); BILIRUBIN,TOTAL 0.2 MG/DL (0.2-1.0); BLOOD UREA NITROGEN 30 mg/dL (7-18); CALCIUM 8.7 MG/DL (8.5-10.1); CARBON DIOXIDE 23 MMOL/L (21-32); CHLORIDE 103 MMOL/L (98-107); CREATINE KINASE 167 U/L (26-308); CREATININE 1.7 MG/DL (0.55-1.30); FERRITIN 757 NG/ML (8-388); PHOSPHORUS 3.4 MG/DL (2.5-4.9); POTASSIUM 5.1 MMOL/L (3.5-5.1); SODIUM 134 MMOL/L (136-145)
[2019-02-10 07:07] LABS: % IRON SATURATION 38 % (15-50); IRON 68 ug/dL (50-175); TOTAL IRON BINDING CAPACITY 177 ug/dL (250-450)
[2019-02-10 07:13] LABS: ALANINE AMINOTRANSFERASE 35 U/L (12-78)
--- NOTE | 2019-02-10 07:52 | NUR ---
NURSE NOTES: Received pt with stable condition. pt in bed with no sob nor in any form of distress noted. IVF running with no adverse reaction noted. bed in lowest position. fall precaution provided. will continue to monitor
[2019-02-10 08:00] VITALS: BP 132/80
[2019-02-10] MEDS: Docusate 100mg cap ORAL SCH ×2 (08:09→12:27)
[2019-02-10] MEDS ORDERED: Miralax 17gm pkt ORAL PRN ×2 (09:00)
[2019-02-10] MEDS ORDERED: Zolpidem 5mg tab ORAL PRN ×2 (09:00)
[2019-02-10] MEDS ORDERED: Docusate 100mg cap ORAL SCH (09:00)
--- NOTE | 2019-02-10 09:19 | General Progress Note ---
Assessment/Plan Problem List: (1) Hypertension ICD Codes: I10 - Essential (primary) hypertension SNOMED: 95515044 Qualifiers: Qualified Codes: I10 - Essential (primary) hypertension (2) Angioedema due to angiotensin converting enzyme inhibitor(MARA-I) ICD Codes: T78.3XXA - Angioneurotic edema, initial encounter; T46.4X5A - Adverse effect of ztbpughcdnv-[id number]-lhlsmx inhibitors, initial encounter SNOMED: 579904234 Status: stable, progressing Assessment/Plan: diet monitor dc w hh if clear Subjective Constitutional: Reports: weakness Allergies: Coded Allergies: ASPIRIN (Verified Allergy, Unknown, 08/22/18) All Systems: reviewed and negative except above Subjective improved wants to go home Objective Last 24 Hour Vital Signs Date Time Temp Pulse Resp B/P (MAP) Pulse Ox O2 Delivery O2 Flow Rate FiO2 02/10/19 08:08 66 132/80 02/10/19 08:00 97.9 66 18 132/80 (97) 97 02/10/19 04:00 97.7 70 18 138/84 (102) 97 02/10/19 00:00 98.3 75 18 158/80 (106) 97 02/09/19 21:25 Room Air 02/09/19 20:28 98.0 02/09/19 20:00 99.0 79 20 140/79 (99) 97 02/09/19 16:00 98.0 84 20 144/74 (97) 98 02/09/19 12:00 98.0 80 20 133/84 (100) 98 02/09/19 11:35 77 Intake and Output 02/09/19 02/10/19 18:59 06:59 Intake Total 1275 ml 100 ml Output Total 1300 ml 700 ml Balance -25 ml -600 ml Intake Oral 600 ml IV Total 675 ml 100 ml Output Urine Total 1300 ml 700 ml # Voids 3 Laboratory Tests 02/09/19 09:45: Urine Eosinophils None seen 02/10/19 05:20: White Blood Count 6.9, Red Blood Count 3.58L, Hemoglobin 10.0L, Hematocrit 30.2L , Mean Corpuscular Volume 85, Mean Corpuscular Hemoglobin 27.9, Mean Corpuscular Hemoglobin Concent 33.0, Red Cell Distribution Width 11.6, Platelet Count 166, Mean Platelet Volume 6.8, Neutrophils (%) (Auto) 83.3H, Lymphocytes ( %) (Auto) 8.6L, Monocytes (%) (Auto) 7.6, Eosinophils (%) (Auto) 0.1, Basophils (%) (Auto) 0.4, Sodium Level 134L, Potassium Level 5.1, Chloride Level 103, Carbon Dioxide Level 23, Anion Gap 8, Blood Urea Nitrogen 30H, Creatinine 1.7H, Estimat Glomerular Filtration Rate , Glucose Level 142H, Uric Acid 6.0, Calcium Level 8.7, Phosphorus Level 3.4, Magnesium Level 2.0, Iron Level 68, Total Iron Binding Capacity 177L, Percent Iron Saturation 38, Unsaturated Iron Binding 109L , Ferritin 757H, Total Bilirubin 0.2, Aspartate Amino Transf (AST/SGOT) 52H, Alanine Aminotransferase (ALT/SGPT) 35, Alkaline Phosphatase 309H, Total Creatine Kinase 167, C-Reactive Protein, Quantitative 0.7, Pro-B-Type Natriuretic Peptide 171H, Total Protein 6.5, Albumin 2.8L, Globulin 3.7, Albumin /Globulin Ratio 0.8L, Vitamin B12 Level 326, Folate 7.7L 02/10/19 07:00: Urine Eosinophils None seen Height (Feet): 6 Height (Inches): 3.00 Weight (Pounds): 179 General Appearance: alert EENT: normal ENT inspection Neck: normal alignment Cardiovascular: normal peripheral pulses, normal rate, regular rhythm Respiratory/Chest: chest wall non-tender, lungs clear, normal breath sounds Abdomen: normal bowel sounds, non tender, soft Extremities: normal inspection Edema: no edema noted Arm (L), no edema noted Arm (R), no edema noted Leg (L), no edema noted Leg (R), no edema noted Pedal (L), no edema noted Pedal (R), no edema noted Generalized Neurologic: responsive, motor weakness Skin: normal pigmentation, warm/dry Objective sl lip swelling Tang Hernandes DO Feb 10, 2019 09:19
[2019-02-10] MEDS ORDERED: Tamsulosin 0.4mg cap ORAL SCH ×4 (09:34→21:00)
--- NOTE | 2019-02-10 09:36 | NUR ---
NURSE NOTES: Received a call from [employer], ([employer]) and was informed that pt has pvd with 350ml after the renal us. Dr. esteban was present on the unit and informed him of pt's condition. ordered one time flomax now and then bid. noted and carried out. pt denies any discomfort nor pain at this time. able to use urinal with no difficulty.
--- NOTE | 2019-02-10 09:59 | Nephrology Progress Note ---
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) (2) Hypertension (3) Renal failure (ARF), acute on chronic (4) Anemia Assessment Acute on Chronic renal failure- Hypertensive kidney disease Acute allergic reaction to Greg Inhibitors DM Plan increase flomax Folate supplement OK to DC and fu as OP H2 Blockers tapering prednison benadryl PRN BP meds monitor renal parameters CXR Kidney GREYSON Pending 2D Echo pending urine studies Per orders Subjective ROS Limited/Unobtainable: No Objective Objective Last 24 Hour Vital Signs Date Time Temp Pulse Resp B/P (MAP) Pulse Ox O2 Delivery O2 Flow Rate FiO2 02/10/19 09:45 97.9 02/10/19 09:39 Room Air 02/10/19 08:08 66 132/80 02/10/19 08:00 97.9 66 18 132/80 (97) 97 02/10/19 04:00 97.7 70 18 138/84 (102) 97 02/10/19 00:00 98.3 75 18 158/80 (106) 97 02/09/19 21:25 Room Air 02/09/19 20:28 98.0 02/09/19 20:00 99.0 79 20 140/79 (99) 97 02/09/19 16:00 98.0 84 20 144/74 (97) 98 02/09/19 12:00 98.0 80 20 133/84 (100) 98 02/09/19 11:35 77 Intake and Output 02/09/19 02/10/19 18:59 06:59 Intake Total 1275 ml 100 ml Output Total 1300 ml 700 ml Balance -25 ml -600 ml Intake Oral 600 ml IV Total 675 ml 100 ml Output Urine Total 1300 ml 700 ml # Voids 3 Current Medications Medications (Trade) Dose Ordered Sig/Winnie Route PRN Reason Start Time Stop Time Status Last Admin Dose Admin Acetaminophen (Tylenol) 650 mg Q4H PRN ORAL fever 02/10/19 01:00 03/10/19 08:59 Acetaminophen/ Hydrocodone Bitart ([place] 10/325) 1 tab Q4H PRN ORAL PAIN 4-10 02/10/19 00:30 02/15/19 16:29 02/10/19 09:15 Amlodipine Besylate (Norvasc) 10 mg DAILY ORAL 02/10/19 09:00 03/11/19 08:59 02/10/19 08:08 Dextrose (Dextrose 50%) 25 ml Q30M PRN IV Hypoglycemia 02/09/19 22:45 03/10/19 15:12 Dextrose (Dextrose 50%) 50 ml Q30M PRN IV hypoglycemia 02/09/19 22:45 03/10/19 15:14 Diphenhydramine HCl (Benadryl) 25 mg Q6H PRN ORAL Itching 02/10/19 03:15 03/10/19 15:14 Docusate Sodium (Colace) 100 mg THREE TIMES A DAY ORAL 02/10/19 09:00 03/11/19 17:59 02/10/19 08:09 Famotidine (Pepcid) 20 mg BID ORAL 02/10/19 09:00 03/10/19 17:59 02/10/19 08:08 Folic Acid (Folate) 2 mg DAILY ORAL 02/10/19 09:00 03/12/19 08:59 02/10/19 09:11 Hydralazine HCl (Apresoline) 10 mg Q4H PRN IV sbp> 160 02/10/19 02:30 03/10/19 10:29 Lorazepam (Ativan 2mg/ml 1ml) 0.5 mg Q4H PRN IV For Anxiety 02/10/19 01:00 02/15/19 08:59 Morphine Sulfate (Morphine Sulfate) 1 mg Q4H PRN IVP SEVERE BREAKTHROUGH PAIN 02/10/19 01:00 02/17/19 00:59 Ondansetron HCl (Zofran) 4 mg Q6H PRN IVP Nausea & Vomiting 02/10/19 03:00 03/10/19 08:59 Polyethylene Glycol (Miralax) 17 gm HSPRN PRN ORAL Constipation 02/10/19 09:00 03/10/19 08:59 Prednisone (predniSONE) 20 mg TID ORAL 02/10/19 09:00 02/11/19 13:01 02/10/19 08:08 Sodium Chloride 1,000 ml @ 50 mls/hr Q20H IV 02/10/19 14:30 03/11/19 14:29 02/10/19 04:01 Tamsulosin HCl (Flomax) 0.4 mg BEDTIME ORAL 02/10/19 21:00 03/10/19 20:59 Tamsulosin HCl (Flomax) 0.4 mg ONCE ORAL 02/10/19 09:34 02/10/19 10:30 02/10/19 09:53 Zolpidem Tartrate (Ambien) 5 mg HSPRN PRN ORAL Insomnia 02/10/19 09:00 02/15/19 08:59 Laboratory Tests 02/10/19 05:20: White Blood Count 6.9, Red Blood Count 3.58L, Hemoglobin 10.0L, Hematocrit 30.2L , Mean Corpuscular Volume 85, Mean Corpuscular Hemoglobin 27.9, Mean Corpuscular Hemoglobin Concent 33.0, Red Cell Distribution Width 11.6, Platelet Count 166, Mean Platelet Volume 6.8, Neutrophils (%) (Auto) 83.3H, Lymphocytes ( %) (Auto) 8.6L, Monocytes (%) (Auto) 7.6, Eosinophils (%) (Auto) 0.1, Basophils (%) (Auto) 0.4, Sodium Level 134L, Potassium Level 5.1, Chloride Level 103, Carbon Dioxide Level 23, Anion Gap 8, Blood Urea Nitrogen 30H, Creatinine 1.7H, Estimat Glomerular Filtration Rate , Glucose Level 142H, Uric Acid 6.0, Calcium Level 8.7, Phosphorus Level 3.4, Magnesium Level 2.0, Iron Level 68, Total Iron Binding Capacity 177L, Percent Iron Saturation 38, Unsaturated Iron Binding 109L , Ferritin 757H, Total Bilirubin 0.2, Aspartate Amino Transf (AST/SGOT) 52H, Alanine Aminotransferase (ALT/SGPT) 35, Alkaline Phosphatase 309H, Total Creatine Kinase 167, C-Reactive Protein, Quantitative 0.7, Pro-B-Type Natriuretic Peptide 171H, Total Protein 6.5, Albumin 2.8L, Globulin 3.7, Albumin /Globulin Ratio 0.8L, Vitamin B12 Level 326, Folate 7.7L 02/10/19 07:00: Urine Eosinophils None seen Height (Feet): 6 Height (Inches): 3.00 Weight (Pounds): 179 General Appearance: no apparent distress EENT: other - mouth swelling much less Respiratory/Chest: lungs clear Abdomen: soft Objective no change Philip James MD Feb 10, 2019 09:59
[2019-02-10] MEDS ORDERED: ACETAMINOPHEN325 M1 ORAL (11:17)
[2019-02-10] MEDS ORDERED: COLACE100 MG ORAL (11:18)
[2019-02-10] MEDS ORDERED: BENADRYL ALLERG25 M1 PO (11:18)
[2019-02-10] MEDS ORDERED: FOLIC ACID1 MG ORAL (11:19)
[2019-02-10] MEDS ORDERED: FAMOTIDINE20 MG ORAL (11:19)
[2019-02-10] MEDS ORDERED: MIRALAX17 G2 ORAL (11:20)
[2019-02-10] MEDS ORDERED: FLOMAX0.4 MG ORAL (11:22)
[2019-02-10 12:00] VITALS: BP 136/82
--- NOTE | 2019-02-10 12:39 | NUR ---
DISCHARGE PLANNING Discharge order noted Patient has been referred to [facility], Await Acceptance and Room Number
--- NOTE | 2019-02-10 12:53 | Pulmonology Progress Note ---
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) Assessment/Plan improving watch BP no new complains all reviewed dc steroids dc for am Subjective ROS Limited/Unobtainable: No Constitutional: Reports: no symptoms HEENT: Repors: no symptoms Respiratory: Reports: no symptoms Allergies: Coded Allergies: ASPIRIN (Verified Allergy, Unknown, 08/22/18) Objective Last 24 Hour Vital Signs Date Time Temp Pulse Resp B/P (MAP) Pulse Ox O2 Delivery O2 Flow Rate FiO2 02/10/19 12:00 98.0 69 18 136/82 (100) 98 02/10/19 09:45 97.9 02/10/19 09:39 Room Air 02/10/19 08:08 66 132/80 02/10/19 08:00 97.9 66 18 132/80 (97) 97 02/10/19 04:00 97.7 70 18 138/84 (102) 97 02/10/19 00:00 98.3 75 18 158/80 (106) 97 02/09/19 21:25 Room Air 02/09/19 20:28 98.0 02/09/19 20:00 99.0 79 20 140/79 (99) 97 02/09/19 16:00 98.0 84 20 144/74 (97) 98 Intake and Output 02/09/19 02/10/19 19:00 07:00 Intake Total 1200 ml 100 ml Output Total 1300 ml 700 ml Balance -100 ml -600 ml Intake Oral 600 ml IV Total 600 ml 100 ml Output Urine Total 1300 ml 700 ml # Voids 3 Objective General Appearance: WD/WN HEENT: normocephalic, atraumatic Cardiovascular: normal peripheral pulses, normal rate Abdomen: normal bowel sounds, soft, non tender Genitourinary: normal external genitalia Extremities: no clubbing Skin: no rash 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 Musculoskeletal: normal muscle bulk Laboratory Tests 02/10/19 05:20: White Blood Count 6.9, Red Blood Count 3.58L, Hemoglobin 10.0L, Hematocrit 30.2L , Mean Corpuscular Volume 85, Mean Corpuscular Hemoglobin 27.9, Mean Corpuscular Hemoglobin Concent 33.0, Red Cell Distribution Width 11.6, Platelet Count 166, Mean Platelet Volume 6.8, Neutrophils (%) (Auto) 83.3H, Lymphocytes ( %) (Auto) 8.6L, Monocytes (%) (Auto) 7.6, Eosinophils (%) (Auto) 0.1, Basophils (%) (Auto) 0.4, Sodium Level 134L, Potassium Level 5.1, Chloride Level 103, Carbon Dioxide Level 23, Anion Gap 8, Blood Urea Nitrogen 30H, Creatinine 1.7H, Estimat Glomerular Filtration Rate , Glucose Level 142H, Uric Acid 6.0, Calcium Level 8.7, Phosphorus Level 3.4, Magnesium Level 2.0, Iron Level 68, Total Iron Binding Capacity 177L, Percent Iron Saturation 38, Unsaturated Iron Binding 109L , Ferritin 757H, Total Bilirubin 0.2, Aspartate Amino Transf (AST/SGOT) 52H, Alanine Aminotransferase (ALT/SGPT) 35, Alkaline Phosphatase 309H, Total Creatine Kinase 167, C-Reactive Protein, Quantitative 0.7, Pro-B-Type Natriuretic Peptide 171H, Total Protein 6.5, Albumin 2.8L, Globulin 3.7, Albumin /Globulin Ratio 0.8L, Vitamin B12 Level 326, Folate 7.7L 02/10/19 07:00: Urine Eosinophils None seen Current Medications Medications (Trade) Dose Ordered Sig/Winnie Route PRN Reason Start Time Stop Time Status Last Admin Dose Admin Acetaminophen (Tylenol) 650 mg Q4H PRN ORAL fever 02/10/19 01:00 03/10/19 08:59 Acetaminophen/ Hydrocodone Bitart ([place] 10/325) 1 tab Q4H PRN ORAL PAIN 4-10 02/10/19 00:30 02/15/19 16:29 02/10/19 09:15 Amlodipine Besylate (Norvasc) 10 mg DAILY ORAL 02/10/19 09:00 03/11/19 08:59 02/10/19 08:08 Dextrose (Dextrose 50%) 25 ml Q30M PRN IV Hypoglycemia 02/09/19 22:45 03/10/19 15:12 Dextrose (Dextrose 50%) 50 ml Q30M PRN IV hypoglycemia 02/09/19 22:45 03/10/19 15:14 Diphenhydramine HCl (Benadryl) 25 mg Q6H PRN ORAL Itching 02/10/19 03:15 03/10/19 15:14 Docusate Sodium (Colace) 100 mg THREE TIMES A DAY ORAL 02/10/19 09:00 03/11/19 17:59 02/10/19 12:27 Famotidine (Pepcid) 20 mg BID ORAL 02/10/19 09:00 03/10/19 17:59 02/10/19 08:08 Folic Acid (Folate) 2 mg DAILY ORAL 02/10/19 09:00 03/12/19 08:59 02/10/19 09:11 Hydralazine HCl (Apresoline) 10 mg Q4H PRN IV sbp> 160 02/10/19 02:30 03/10/19 10:29 Lorazepam (Ativan 2mg/ml 1ml) 0.5 mg Q4H PRN IV For Anxiety 02/10/19 01:00 02/15/19 08:59 Morphine Sulfate (Morphine Sulfate) 1 mg Q4H PRN IVP SEVERE BREAKTHROUGH PAIN 02/10/19 01:00 02/17/19 00:59 Ondansetron HCl (Zofran) 4 mg Q6H PRN IVP Nausea & Vomiting 02/10/19 03:00 03/10/19 08:59 Polyethylene Glycol (Miralax) 17 gm HSPRN PRN ORAL Constipation 02/10/19 09:00 03/10/19 08:59 Prednisone (predniSONE) 20 mg TID ORAL 02/10/19 09:00 02/11/19 13:01 02/10/19 12:27 Tamsulosin HCl (Flomax) 0.4 mg BID ORAL 02/10/19 18:00 03/10/19 20:59 Zolpidem Tartrate (Ambien) 5 mg HSPRN PRN ORAL Insomnia 02/10/19 09:00 02/15/19 08:59 Paula Cho MD Feb 10, 2019 12:53
--- NOTE | 2019-02-10 13:30 | NUR ---
NURSE NOTES: pt discharged to home with [facility] with stable condition. all discharge instruction and RX given to pt and verbalized understanding. Iv heplock removed and covered with gauze and taped. no bleeding noted. denies any pain.
--- NOTE | 2019-02-10 13:48 | NUR ---
*-* INSURANCE *-* ALL CLINICALS AND REVIEWS HAVE BEEN FAXED TO: [facility] FAX CLINICALS TO [phone]
--- NOTE | 2019-02-10 14:18 | Diagnostic Imaging Report ---
Indication: Acute renal failure Technique: Grayscale and duplex images of the kidneys, retroperitoneum, and bladder were obtained. Comparison: none Findings: Right kidney measures 10.7 cm in length. Left kidney measures 10.3 cm in length. Both kidneys demonstrate normal echogenicity. Both kidneys demonstrate mild hydronephrosis. There is a 2.4 cm cyst in the upper pole of the left kidney.. Normal inferior vena cava. Bladder is distended. Prevoid volume is 385 mL. Postvoid volume is 141 mL. Bladder wall appears somewhat trabeculated. Ureteral jets are noted bilaterally.. Calcaneal prostate volume is 43 mL Impression: Mild bilateral hydronephrosis, etiology not demonstrated. Possibly due to bladder distention and incomplete voiding but other etiologies also possible Post void bladder volume 141 mL Equivocal bladder wall trabeculation Prominent 43 mL prostate Incidental finding left renal cyst.
--- NOTE | 2019-02-10 20:18 | Physician Query ---
Please Clarify if you mean: Stages Description GFR CKD Stage 1 Caused by DM, HTN, etc. with kidney abnormality 90 mL/ min or more CKD Stage 2 Mild decrease in Kidney function 60 to 89 mL/min CKD Stage 3 Moderate decrease in kidney function 30-59 CKD Stage 4 Severe decrease in kidney function 15-29 CKD Stage 5 Kidney failure; requiring dialysis or transplantation <15 ESRD Patient requiring dialysis for > 3 months or kidney transplant irrespective of level of GFR; Applicable for 1 year after kidney transplant Other: Comment/Explanation: Present on Admission: Yes (Y) Clinically Undeterminable (W) No (N) PHYSICIAN QUERY FORM CHRONIC KIDNEY DISEASE MTDD
--- NOTE | 2019-02-11 10:30 | Discharge Summary ---
Discharge Summary Discharge Summary _ DATE OF ADMISSION: 02/08/2019 DATE OF DISCHARGE: 02/10/2019 DISCHARGED BY: Dr Hernandes REASON FOR ADMISSION: 73 years old male with past medical history of hypertension, presented with a chief complaint of allergic reaction. Patient apparently was taking MARA inhibitor and Norvasc for hypertension. About 12 hours prior to presentation to ED, he noted lip swelling after dinner , which was getting progressively worse. Swelling started on the left side and then spread to the right side. Patient also reported swelling of the left cheek. Patient denied tongue swelling , respiratory distress, no neck tightness . Upon evaluation pulse oximetry was stable on room air. Blood pressure was elevated 161/89. EKG revealed sinus rhythm, no acute ischemic changes. Laboratory work-up revealed no leukocytosis, mild anemia with hemoglobin 12.6 , hematocrit 37.6. BUN 27 , creatinine 2.2. Glucose 110 . Sodium 134 Chest x-ray revealed small right pleural effusion noted , no focal consolidation . In the emergency department patient received IV steroid and Benadryl. For blood pressure patient received IV hydralazine . Patient subsequently was admitted for further management. CONSULTANTS: pulmonary Dr. Cho long chain quiller tender Dr. James [facility]: Patient admitted to medical surgical floor. Obviously MARA inhibitor was stopped. Blood pressure was managed with calcium channel diego and hydralazine as needed. Patient started on steroid, H1 and H2 diego. Respiratory status was closely monitored, remained stable. No signs of respiratory distress. Pulse oximetry was stable on room air. Renal parameters and electrolytes were closely monitored. Electrolytes corrected as needed , nephrotoxins were avoided. [employer] followed. Renal ultrasound revealed mild bilateral hydronephrosis , possibly due to bladder distention and incomplete voiding. Patient started on Flomax and dose was subsequently increased. Monitor urinary output as outpatient. Prior to discharge creatinine from 2.2 down to 1.7. Venous duplex bilateral lower extremity revealed no evidence of acute DVT. Echocardiogram revealed preserved ejection fraction 65% with moderate left ventricular hypertrophy. No evidence of wall motion abnormality. Right ventricular systolic pressure 15. Blood sugar was managed with sliding scale of insulin. Hemoglobin A1c 6.8. Lipid panel was stable. Hemoglobin and hematocrit were closely monitored with goal to keep hemoglobin above 7. Stable iron, low folate . Patient start on folic acid replacement. Lip and cheek edema subsequently decreased. Patient clinically stabilized and was ready for discharge back home. Patient was advised to notify all his care providers for allergy to MARA inhibitor. FINAL DIAGNOSES: Angioedema due to angiotensin-converting enzyme inhibitor Renal failure , acute on chronic Hypertension Hypertensive kidney disease Anemia Diabetes mellitus Folate deficiency DISCHARGE MEDICATIONS: See Medication Reconciliation list. DISCHARGE INSTRUCTIONS: Patient was discharged home with home health services. Follow up with primary care provider in one week. I have been assigned to dictate discharge summary for this account. I was not involved in the patient's management. Makayla Holland NP Feb 11, 2019 10:30
--- NOTE | 2019-02-11 14:23 | NUR ---
*-* INSURANCE *-* DISCHARGE SUMMARY HAVE BEEN FAXED TO: [facility] FAX CLINICALS TO [phone]
== END 2019-02-10 13:20 | disposition home health service (06) | DRG 811 ==
LOC: EMR 05:52 → 2E 06:11 → EDBEDREQ 06:31 → 2E 09:05 → 4E 02-09 22:58
DX: T78.3XXA Angioneurotic edema, initial encounter (principal); N17.9 Acute kidney failure, unspecified; E11.22 Type 2 diabetes mellitus with diabetic chronic kidney disease; D64.9 Anemia, unspecified; E11.9 Type 2 diabetes mellitus without complications; E53.8 Deficiency of other specified B group vitamins; I12.9 Hypertensive chronic kidney disease with stage 1 through stage 4 chronic kidney disease, or unspecified chronic kidney disease; T44.5X5A Adverse effect of predominantly beta-adrenoreceptor agonists, initial encounter; T88.7XXA Unspecified adverse effect of drug or medicament, initial encounter; N18.9 Chronic kidney disease, unspecified; Z88.6 Allergy status to analgesic agent
CPT/HCPCS: 36415; 71045; 76770; 80048; 80053; 80061; 81001; 82550; 82607; 82728; 82746; 82977; 83036; 83540; 83550; 83735; 83880; 84100; 84300; 84443; 84550; 85025; 86140; 89050; 93005; 93306; 93970; 96374; 96375; 99285

== ENCOUNTER → 2019-06-14 | Outpatient (CLI) | payer MEDICARE, MEDICAID ==
[~2019-06-14] MED LIST changes: +ACETAMINOPHEN325 M1 ORAL; +BENADRYL ALLERG25 M1 PO; +COLACE100 MG ORAL; +FAMOTIDINE20 MG ORAL; +FLOMAX0.4 MG ORAL; +FOLIC ACID1 MG ORAL; +LISINOPRIL20 MG ORAL; +MIRALAX17 G2 ORAL; +NORCO 10-325 T1 EACH ORAL; +NORVASC10 MG ORAL
[2019-06-14 12:10] LABS: ALANINE AMINOTRANSFERASE 18 U/L (12-78); ALBUMIN/GLOBULIN RATIO 1.1 (1.0-2.7); ALKALINE PHOSPHATASE 376 U/L (46-116); ANION GAP 8 mmol/L (5-15); ASPARTATE AMINO TRANSFERASE 17 U/L (15-37); BILIRUBIN,TOTAL 0.2 MG/DL (0.2-1.0); BLOOD UREA NITROGEN 19 mg/dL (7-18); CALCIUM 9.2 MG/DL (8.5-10.1); CARBON DIOXIDE 26 MMOL/L (21-32); CHLORIDE 108 MMOL/L (98-107); CHOLESTEROL 172 MG/DL (< 200); CREATININE 1.5 MG/DL (0.55-1.30); HDL CHOLESTEROL 67 MG/DL (40-60); POTASSIUM 4.9 MMOL/L (3.5-5.1); SODIUM 142 MMOL/L (136-145); TRIGLYCERIDES 50 MG/DL (30-150)
[2019-06-15 11:02] LABS: APPEARANCE,URINE CLEAR; BASOPHILS % (AUTO) 0.9 % (0.0-2.0); BILIRUBIN, URINE NEGATIVE (NEGATIVE); COLOR,URINE PALE YELLOW; EOSINOPHILS % (AUTO) 8.4 % (0.0-3.0); GLUCOSE, URINE (UA) NEGATIVE (NEGATIVE); HEMATOCRIT 35.6 % (42.0-52.0); HEMOGLOBIN 11.1 G/DL (14.2-18.0); KETONES,URINE NEGATIVE (NEGATIVE); LEUKOCYTE ESTERASE ,URINE NEGATIVE (NEGATIVE); LYMPHOCYTES % (AUTO) 19.6 % (20.0-45.0); MEAN CORPUSCULAR VOLUME 87 FL (80-99); MONOCYTES % (AUTO) 7.2 % (1.0-10.0); NEUTROPHILS % (AUTO) 63.9 % (45.0-75.0); NITRITE,URINE NEGATIVE (NEGATIVE); PH,URINE 8 (4.5-8.0); PLATELET COUNT 153 K/UL (150-450); PROTEIN,URINE NEGATIVE (NEGATIVE); RED BLOOD COUNT 4.11 M/UL (4.70-6.10); RED CELL DISTRIBUTION WIDTH 14.3 % (11.6-14.8); UROBILINOGEN,URINE NORMAL MG/DL (0.0-1.0); WHITE BLOOD COUNT 5.2 K/UL (4.8-10.8)
== END | disposition home or self-care (01) ==
LOC: LAB 10:12
DX: I10 Essential (primary) hypertension (principal)
CPT/HCPCS: 36415; 80053; 80061; 81001; 85025

== ENCOUNTER 2020-01-13 13:50 | Emergency (ER) | payer MEDICARE, MEDICAID ==
[~2020-01-13] VITALS: Ht 182.9 cm; Wt 86.2 kg
[2020-01-13 14:18] VITALS: BP 133/80
--- NOTE | 2020-01-13 14:28 | NUR ---
ED Nurse Note: Pt walked in for medication refill. No symptoms reported. AAO x4 and ambulatory with no distress.
[2020-01-13] MEDS ORDERED: ALBUTEROL2.5 MG/3 M HHN (14:36)
[2020-01-13] MEDS ORDERED: NORVASC10 MG ORAL (14:36)
[2020-01-13] MEDS ORDERED: NORCO 10-325 T1 EACH ORAL (14:36)
[2020-01-13 14:50] VITALS: BP 132/76
--- NOTE | 2020-01-13 14:50 | NUR ---
ER DISCHARGE NOTE: Patient is cleared to be discharged per ERMD, pt is aox4, on room air, with stable vital signs. pt was given dc and prescription instructions, pt was able to verbalize understanding, pt id band removed without complications. pt is able to ambulate with steady gait. pt took all belongings.
--- NOTE | 2020-01-13 15:13 | Emergency Room Report ---
History of Present Illness General Chief Complaint: Medication Refill Source: Patient, Medical Record Present Illness HPI Patient presents with complaints of having history of hypertension Reports that he is out of his blood pressure medication also albuterol liquid Patient also reports chronic pain and requiring medication for [place] Denies any focal weakness at this time denies any chest pain or shortness of breath denies any back or flank pain denies any vomiting Allergies: Coded Allergies: ASPIRIN (Verified Allergy, Unknown, 08/22/18) COVID-19 Screening Contact w/high risk pt: No Recent Travel to affected area: No Experienced COVID-19 symptoms?: No Patient History Past Medical History: see triage record Reviewed Nursing Documentation: PMH: Agreed; PSxH: Agreed Nursing Documentation-PMH Past Medical History: No History, Except For Hx Hypertension: Yes Hx Cancer: No Hx Gastrointestinal Problems: No - prostate biopsy Hx Neurological Problems: No Review of Systems All Other Systems: negative except mentioned in HPI Physical Exam Vital Signs Date Time Temp Pulse Resp B/P (MAP) Pulse Ox O2 Delivery O2 Flow Rate FiO2 01/13/20 14:18 97.9 73 15 133/80 (97) 96 Room Air Sp02 EP Interpretation: reviewed, normal General Appearance: well appearing, no apparent distress Head: normocephalic, atraumatic Eyes: bilateral eye PERRL, bilateral eye EOMI ENT: hearing grossly normal, normal pharynx, TMs + canals normal, uvula midline Neck: full range of motion, supple, no meningismus, no bony tend Respiratory: lungs clear, normal breath sounds, no rhonchi, no respiratory distress, no retraction, no accessory muscle use Cardiovascular #1: normal peripheral pulses, regular rate, rhythm, no edema, no gallop, no JVD, no murmur Gastrointestinal: normal bowel sounds, non tender, soft, no mass, no organomegaly, non-distended, no guarding, no hernia, no pulsatile mass, no rebound Genitourinary: no CVA tenderness Musculoskeletal: normal inspection Neurologic: motor strength/tone normal, fur nailer III-XII nml as tested, oriented x3 , sensory intact, responsive Psychiatric: mood/affect normal Skin: no rash Lymphatic: normal inspection, no adenopathy Medical Decision Making Diagnostic Impression: Primary Impression: hypertension Additional Impressions: copd renal insufficiency ER Course I did make contact with the patient's primary physician who reports the patient was in the office 7 days ago Was not aware of his requirement for [place] at that time patient however is on a regular schedule Last Vital Signs Date Time Temp Pulse Resp B/P (MAP) Pulse Ox O2 Delivery O2 Flow Rate FiO2 01/13/20 14:50 98.2 86 17 132/76 99 Room Air Status: unchanged Disposition: HOME, SELF-CARE Condition: Stable Scripts Hydrocodone Bit/Acetaminophen 10-325* (NORCO 10-325*) 1 Each Tablet 1 TAB ORAL Q8HR PRN for For Pain, #12 TAB 0 Refills PRN PAIN Prov: Kori Dutta DO 01/13/20 Albuterol Sulfate* (ALBUTEROL SULFATE HHN*) 2.5 Mg/3 Ml Vial.neb 2.5 MG HHN Q4H PRN for Shortness of Breath, #25 VIAL Prov: Kori Dutta DO 01/13/20 Amlodipine Besylate (Norvasc) 10 Mg Tablet 10 MG ORAL DAILY, #30 TAB Prov: Kori Dutta DO 01/13/20 Patient Instructions: Hypertension, [id number] Additional Instructions: Patient is provided with the discharge instructions notified to follow up with primary doctor in the next 2-3 days otherwise return to the er with any worsening symptoms. Please note that this report is being documented using Simplify technology. This can lead to erroneous entry secondary to incorrect interpretation by the dictating instrument. Kori Dutta DO Jan 13, 2020 15:13
== END 2020-01-13 14:50 | disposition home or self-care (01) ==
LOC: EMR 14:37
DX: I10 Essential (primary) hypertension (principal); J44.9 Chronic obstructive pulmonary disease, unspecified; N28.9 Disorder of kidney and ureter, unspecified; Z88.6 Allergy status to analgesic agent
CPT/HCPCS: 99282